=== PATIENT | female | born 1950 | race Caucasian/White ===

== ENCOUNTER 2020-04-01 15:30 | Outpatient (RCR) | payer MEDICARE, BC, SELFPAY ==
--- NOTE | 2020-03-18 15:56 | PTOPEVAL ---
INITIAL PHYSICAL THERAPY EVALUATION and PLAN OF CARE Thank you for referring Carrie Sanon to [facility].? Carrie is scheduled to be seen for physical therapy? 2x/week for 4 weeks. Please review, sign, date and return this plan of care BRYAN. I agree with and certify that the following plan of care is medically necessary. Referring Physician Date Admitting Provider: Attending Provider: Aida Arguelles, ANP Referring Provider: *PT Outpatient Evaluation Start: 03/18/20 14:40 Freq: Status: Active Protocol: Document 03/18/20 14:40 ALBERTO (Rec: 03/18/20 15:53 ALBERTO [id number]) Therapy Assessment Status Assessment Status Assessment Status Evaluation Outpatient Past Medical History Past Medical History Source of Past Medical History Patient Neurological History Hx Cerebrovascular Accident (CVA) Yes: initial one 7-8 yrs ago, other episodes summer & Fall 2019,affected L side Cardiovascular History Hx Coronary Artery Bypass Graft Yes: x3, 2012 - graft from L leg Hx Hypercholesterolemia Yes Hx Hypertension Yes Respiratory History Hx Respiratory Disorders No Significant History Gastrointestinal History Hx Gastrointestinal Disorders No Significant History Genitourinary History Hx Kidney Stones Yes Musculoskeletal History Hx Arthritis Yes Endocrine History Hx Diabetes Yes Psychosocial History Hx Anxiety Yes Evaluation Information Problem Diagnosis Lower Extremity weakness and falls Onset fall this summer, couple episodes of further L UE weakness Subjective Information Saw Judy MARINO - noticed how Query Text:As Reported By Patient/ she was walking - testing out Family her leg strength - increased weakness present. After sleeping - able to get up and move around no problems. During COVID - activity level decreased - wasn't getting out as much as she use to. At home - if didn't move around much could reach out for furniture for some support. Fell getting out of the shower /bathtub - turned around and loss balance - couldn't get up - of no help. - has catch in L knee since this
--- NOTE | 2020-04-05 14:41 | PCPTNOTE ---
Patient called & cancelled scheduled appointment this date due to increased discomfort from arthritis.
--- NOTE | 2020-04-08 15:27 | PCPTNOTE ---
Patient called & cancelled scheduled appointment this date and her next appointment this week due to shingles. Her 04/10/20 appointment was her re-evaluation. Hopefully she will call to reschedule this appointment.
--- NOTE | 2020-04-24 13:48 | PCPTNOTE ---
PHYSICAL THERAPY DISCHARGE SUMMARY Admitting Provider: Attending Provider: Aida Arguelles, ANP Patient:Carrie Sanon Date of :1950 Carrie has not returned for any further treatments since 04/01/2020, therefore she will be discharged at this time. Patient?s initial visit was on 03/18/2020 14:30 and she had a total of 5 visits. She did call to cancel her last 3 appointments - 1 due to arthritic pain and the last 2 due to shingles. She has not called to reschedule her re-evaluation appointment which was originally scheduled for 04/10/2020. The goals have been partially met. Thank you for referring Carrie to [facility]. Please review, sign, date and return this discharge summary BRYAN. I have been updated about Carrie's current status and I agree with discharge from the above service at this time. Referring Physician Date
== END 2020-04-25 13:08 | disposition home or self-care (01) ==
LOC: ANHHIPT 15:30
PROVIDERS: PCP Internal Medicine; Visit Provider Physician Assistant Medical
DX: M62.81 Muscle weakness (generalized) (principal); Z91.81 History of falling
CPT/HCPCS: 97110; 97162

== ENCOUNTER 2023-03-11 01:46 | Day surgery (SDC) | payer MEDICARE, BC, SELFPAY ==
[2023-03-08 15:34] VITALS: BMI 31.4
--- NOTE | 2023-03-08 15:46 | PC.NURSE ---
Report to the Outpatient Waiting Room, entrance under the green pavilion located off [facility], at time 0830 on date 03/11/23. Planned Procedure Time: 1030. Time changes happen often and if your time is changed the preop area will call you the afternoon before. - You and your visitor will be asked to self-screen and do not enter if you have any COVID symptoms. - A mask is optional within the hospital at this time. Patients may have clear liquids (water, carbonated beverages, clear teas, apple juice) until 3 hours prior to surgery with a maximum of 20 ounces. - No food from midnight until time of surgery Take the following medications with a SIP of water the morning of surgery: AMLODIPINE, ATENOLOL, CLONAZEPAM, ESCITALOPRAM, KEPPRA DO NOT STOP ANY OF YOUR OTHER PRESCRIPTION MEDICATIONS PRIOR TO SURGERY ?EXCEPT THE FOLLOWING Medications to discontinue per physician: ASPIRIN Date to take last dose: PT STATES WAS SWITCHED FROM 325MG TO 81MG TO CONTINUE FOR SURGERY Please no make-up, nail surinamese, hairspray, perfume, deodorant, or body powder the day of surgery. No jewelry (including any body piercings) or valuables the day of surgery, leave them at home. Please take a shower or bath the night before, or the morning of, surgery with an antibacterial soap. Wear comfortable, loose fitting clothing. - Jewelry must be removed prior to entering the operating room. Rings and piercings that are not removed may be cut off. - The hospital will not accept responsibility for valuables. - Please leave all valuables, including medications, at home the day of surgery. If you are going home after surgery, a licensed trolley coach driver must drive you home. - NO public transportation without another adult if you receive anesthesia. - We recommend that an adult stay with you for 24 hours following discharge. - We also recommend that you do not drive, make important decision, drink alcoholic beverages, or take any drugs that were not prescribed by your health care provider for at least 24 hours after your discharge time. Follow any additional instructions given to you from your surgeon. If you or anyone in your household have experienced Covid symptoms in the past week, please notify your surgeon or the nurse liaison at the phone number below for possible testing. Telephone instructions given to PT & and asked if any additional questions and then verbalized understanding. Patient advised to call surgeon office or pre surgery nurse liaison [phone] if any additional questions.
--- NOTE | 2023-03-10 07:22 | PM.HPGS ---
History of Present Illness History of Present Illness Consent: Risks, benefits, and alternatives have been discussed and questions answered. Patient agrees to proceed with procedure. Chief complaint: left ureteral stones Narrative: Carrie Sanon is a 73 year old female who was seen in the emergency department at [facility] in [place] a couple months ago with left flank pain and nausea. Imaging demonstrated a 2.5 cm left renal pelvic calculus. Because of the stone size and her body habitus she was not felt to be a candidate for ESWL and the risk with left percutaneous nephrostomy with percutaneous nephrolithotomy was felt to be significant. Instead, she has off did for staged left ureteroscopy with laser lithotripsy and stone extraction. She is aware of the risks including, but not limited to, need for additional procedures, ureteral injury, need to replace the stent, hematuria. Review of Systems Review of Systems: All systems reviewed & are unremarkable except as noted in HPI and below PMFSH Past Medical History Medical History (Updated 03/10/23 @ 07:24 by Sam Daniel MD) Anxiety CAD (coronary artery disease) Diabetes Dyslipidemia HTN (hypertension) Hx of nephrolithotomy with removal of calculi MDD (major depressive disorder) ALANIS (obstructive sleep apnea) TIA (transient ischemic attack) Vitamin D deficiency Surgical History Surgical History H/O heart bypass surgery Family History Family History Father Cancer Mother Cancer Hypertension Heart disease Depression Cerebrovascular accident Social History Social History Smoking status: Never smoker Alcohol intake: never Substance use: never Substance use type: does not use Lack of Transportation: No Lack of Food: Never True Current Housing: I Have Housing Concerned About Future Housing: No Difficulty Paying Gas/Electric Bills: No Difficulty Paying for Meds: No Currently Unemployed: No Education: Trade/Vocational Certificate Living arrangements: with family Occupation/Education: retired Gender identity (if verbalized by the patient): Female Spiritual care concerns: No Meds Home Medications and Allergies Home Medications Medication Instructions Recorded Confirmed Type amlodipine 5 mg tablet 5 mg PO DAILY 07/15/22 03/08/23 History aspirin 325 mg tablet 325 mg PO DAILY 07/15/22 03/08/23 History atenolol 50 mg tablet 50 mg PO DAILY 07/15/22 03/08/23 History atorvastatin 40 mg tablet 40 mg PO DAILY 07/15/22 03/08/23 History clonazepam 0.5 mg tablet 0.5 mg PO .COMPLEX 07/15/22 03/08/23 History escitalopram oxalate 20 mg tablet 20 mg PO DAILY 07/15/22 03/08/23 History nitroglycerin 0.4 mg sublingual 0.4 mg sublingual Q5M PRN Chest 07/15/22 03/08/23 History tablet Pain valsartan 320 1 tablet PO DAILY 07/15/22 03/08/23 History mg-hydrochlorothiazide 25 mg tablet cholecalciferol (vitamin D3) 25 25 mcg PO DAILY 10/26/22 03/08/23 History mcg (1,000 unit) capsule cyanocobalamin (vitamin B-12) 1,000 mcg PO DAILY 10/26/22 03/08/23 History 1,000 mcg tablet aspirin 81 mg chewable tablet 81 mg PO DAILY 03/08/23 03/08/23 History levetiracetam 250 mg tablet 250 mg PO BID 03/08/23 03/08/23 History metformin 500 mg tablet 1,000 mg PO BID 03/08/23 03/08/23 History Allergies Allergy/AdvReac Type Severity Reaction Status Date / Time codeine Allergy Unknown Dizziness Verified 03/08/23 15:30 empagliflozin AdvReac GI upset Verified 03/08/23 15:30 [From Jardiance] Exam Const: General: no acute distress Resp: Effort & Inspection: normal respiratory effort GI: Inspection: non-distended GI Palp: No abdominal tenderness and No Guarding due to palpation present (GI) Auscultation: normal bowel sounds Assessment and Plan Assessment a
[2023-03-11] VITALS (8 sets, daily range): BP systolic 121–155; BP diastolic 43–60; PULSE 57–66; RESP 14–18; TEMP 36.3–36.9; O2SAT 95–100
--- NOTE | ~2023-03-11 | XR_ITS ---
EXAMINATION: XR stent kub - surgery DATE: 03/11/2023 12:24 INDICATION: Left ureteral stones. TECHNIQUE: 18 fluoroscopic intraoperative views of the abdomen and pelvis were obtained. I was not pr esent. Less exposure time was 46 seconds. COMPARISON: Abdomen radiograph 05/03/2018 FINDINGS: Initial images demonstrate a stone in left renal pelvis. The final images demonstrate a lef t internal ureteral stent in expected position. IMPRESSION: 1. Stone in left renal pelvis. 2. Left internal ureteral stent in expected position. Reviewed, dictated and finalized at location A. COMPLIANCE
--- NOTE | 2023-03-11 06:25 | WPDHPUPDATE1 ---
History and Physical Update Update Date/Time: 03/11/23 06:25 History and Physical has been reviewed, including an updated exam of the patient. There are NO changes in the patient's condition. Risks, benefits, and alternatives have been discussed and questions answered. Patient agrees to proceed with procedure.
[2023-03-11] MEDS: LACTATED RINGERS 1,000 ML 30 ML IV CONT ×2 (09:30→12:25)
[2023-03-11 09:53] LABS: Anion Gap 9 mmol/L (8-16); Blood Urea Nitrogen 31 mg/dL (7-17); Carbon Dioxide 27 mmol/L (22-30); Chloride 102 mmol/L (98-107); Estimated CRCL calculation 32 ml/min; Estimated Glomerular Filt Rate 44; Glucose 111 mg/dL (65-110); Potassium 3.3 mmol/L (3.4-5.0); Sodium 138 mmol/L (137-145)
--- NOTE | 2023-03-11 10:29 | WPDANESEPPF ---
Anes - Initial Pre Proc Eval Procedure: Operation Date: 03/11/23 10:30 Proposed Procedures p Cystoscopy, Left Ureteroscopy, Possible Left Retrograde Pyelogram, Possible Left Stone Extraction, Possible Left Stent Placement, Possible Holmium Laser Procedure - Sam Daniel MD Date/Time: 03/11/23 10:29 Surgeon: Sam Daniel MD Pre Op Diagnosis: left ureteral stones Patient Data Age: 73 Gender: F Height: 1.52 m Weight: 72.4 kg Last Vital Signs Temp 36.9 C 03/11/23 09:24 Pulse 59 L 03/11/23 09:24 Resp 16 03/11/23 09:24 BP 137/60 03/11/23 09:24 Pulse Ox 100 03/11/23 09:24 O2 Del Method Room Air 03/11/23 09:24 Allergies Allergy/AdvReac Type Severity Reaction Status Date / Time codeine Allergy Unknown Dizziness Verified 03/11/23 09:31 empagliflozin AdvReac GI upset Verified 03/11/23 09:31 [From [facility]] Home Medications Medication Instructions Recorded Confirmed Type amlodipine 5 mg tablet 5 mg PO DAILY 07/15/22 03/11/23 History aspirin 325 mg tablet 325 mg PO DAILY 07/15/22 03/11/23 History atenolol 50 mg tablet 50 mg PO DAILY 07/15/22 03/11/23 History atorvastatin 40 mg tablet 40 mg PO DAILY 07/15/22 03/11/23 History clonazepam 0.5 mg tablet 0.5 mg PO .COMPLEX 07/15/22 03/11/23 History escitalopram oxalate 20 mg tablet 20 mg PO DAILY 07/15/22 03/11/23 History nitroglycerin 0.4 mg sublingual 0.4 mg sublingual Q5M PRN Chest 07/15/22 03/08/23 History tablet Pain valsartan 320 1 tablet PO DAILY 07/15/22 03/11/23 History mg-hydrochlorothiazide 25 mg tablet cholecalciferol (vitamin D3) 25 25 mcg PO DAILY 10/26/22 03/11/23 History mcg (1,000 unit) capsule cyanocobalamin (vitamin B-12) 1,000 mcg PO DAILY 10/26/22 03/11/23 History 1,000 mcg tablet aspirin 81 mg chewable tablet 81 mg PO DAILY 03/08/23 03/11/23 History levetiracetam 250 mg tablet 250 mg PO BID 03/08/23 03/11/23 History metformin 500 mg tablet 1,000 mg PO BID 03/08/23 03/11/23 History Laboratory Tests 03/11/23 08:45 Sodium 138 mmol/L (137-145) Potassium 3.3 L mmol/L (3.4-5.0) Chloride 102 mmol/L (98-107) Carbon Dioxide 27 mmol/L (22-30) Anion Gap 9 mmol/L (8-16) BUN 31 H mg/dL (7-17) Creatinine 1.20 H mg/dL (0.7-1.0) Estim Creat Clear Calc 32 ml/min Estimated GFR 44 L (59 - ) Glucose 111 H mg/dL (65-110) Calcium 9.0 mg/dL (8.4-10.2) Patient hx anesthesia problems: none Family hx anesthesia problems: none Results Review: All pre-operative results and documents have been reviewed as part of the pre-operative evaluation. [facility] Past Medical History Medical History Anxiety CAD (coronary artery disease) Diabetes Dyslipidemia HTN (hypertension) Hx of nephrolithotomy with removal of calculi MDD (major depressive disorder) ALANIS (obstructive sleep apnea) TIA (transient ischemic attack) Vitamin D deficiency Surgical History Surgical History H/O heart bypass surgery Family History Family History Father Cancer Mother Cancer Hypertension Heart disease Depression Cerebrovascular accident Social History Social History Smoking status: Never smoker Alcohol intake: never Substance use: never Substance use type: does not use Lack of Transportation: No Lack of Food: Never True Current Housing: I Have Housing Concerned About Future Housing: No Difficulty Paying Gas/Electric Bills: No Difficulty Paying for Meds: No Currently Unemployed: No Education: Trade/Vocational Certificate Living arrangements: with family Occupation/Education: retired Gender identity (if verbalized by the patient): Female Spiritual care concerns: No Anes - Eval Final PreProcedure
[2023-03-11] MEDS: ceFAZolin 2 GM/D5W 50 ML 2 GM/50 ML BAG IVPB (10:41)
[2023-03-11] MEDS: LIDOCAINE HCL 2% GEL UROJET 10 ML PKG MUCOUS MEM (11:13)
--- NOTE | 2023-03-11 12:32 | P.OP_ITS ---
Procedure Note - Detailed Date of Procedure 03/11/23 Pre-op Diagnosis Left renal stones Post-op Diagnosis Same Procedure Performed Cystoscopy, left ureteroscopy with laser lithotripsy of a very large left renal pelvic stone, left ureteral stent placement Surgeon Sam Daniel MD Anesthesia General Description of Procedure Patient is brought to the operative suite she was prepped and draped in routine sterile fashion while in dorsal lithotomy position after the uneventful induction of a general LMA anesthetic. Cystoscopy was undertaken with a 19 F rigid cystoscope. Bladder neck and urethra endoscopically normal. Bladder mucosa is normal without hyperemia. There was no intravesical foreign body or neoplasm. A 0.035 in glidewire was advanced into her left renal pelvis. Distal ureter was dilated with an 8 F 10 F dilator. The safety wire was placed ( same type of wire) and a 11 F/ 13 F ureteral access sheath was placed. Flexible ureteroscopy was undertaken with a 7.5 F digital ureteral scope. Her very large renal pelvic stone is identified. Using a 235 micron Ward laser fiber on a du sting mode my fractured the entire stone. This was an extensive procedure requiring 70 minutes of laser application. Throughout this I maintain high-flow under pressure through the ureteral scope. Appeared to be excellent fragmentation at the termination. A 6 F variable length stent was placed in scopes and wires removed. Drains Yes Packing Yes Pathology None sent
== END 2023-03-11 14:30 | disposition home or self-care (01) ==
PROVIDERS: PCP Physician Assistant Medical; Visit Provider Urology
PROC: (CPT 52352; principal; 2023-03-11 10:30)
DX: N20.0 Calculus of kidney (principal); I25.10 Atherosclerotic heart disease of native coronary artery without angina pectoris; I10 Essential (primary) hypertension; E11.9 Type 2 diabetes mellitus without complications; E78.5 Hyperlipidemia, unspecified; F32.9 Major depressive disorder, single episode, unspecified; F41.9 Anxiety disorder, unspecified; G47.33 Obstructive sleep apnea (adult) (pediatric); E55.9 Vitamin D deficiency, unspecified; Z86.73 Personal history of transient ischemic attack (TIA), and cerebral infarction without residual deficits; Z95.1 Presence of aortocoronary bypass graft; Z79.52 Long term (current) use of systemic steroids; Z79.84 Long term (current) use of oral hypoglycemic drugs
CPT/HCPCS: 52356; 36415; 80048; 93005; C1769; C1894; C2617; J0690; J1100; J2405; J2704; J3010; J7120

== ENCOUNTER 2023-03-24 08:15 | Outpatient (CLI) | payer MEDICARE, BC, SELFPAY ==
--- NOTE | ~2023-03-24 | XR_ITS ---
XR abdomen/kub 1V 03/24/2023 08:39 INDICATION: Left ureteral stone TECHNIQUE: KUB COMPARISON: 05/03/2018 FINDINGS: Bowel gas pattern is normal. There is a left internal ureteral stent. There are pelvic phle boliths. There are splenic arterial calcifications. There is no evidence of free air, mass, organomeg edward, ascites or obstruction. No abnormal calculi are seen. The bones appear intact. There is a left internal ureteral stent in expected position. Mild lumbar spondylosis. IMPRESSION: 1: No acute abdominal abnormality identified. Reviewed, dictated and finalized at location B. [employer]
== END 2023-03-24 08:16 | disposition home or self-care (01) ==
PROVIDERS: PCP Physician Assistant Medical; Visit Provider Urology
DX: N20.1 Calculus of ureter (principal)
CPT/HCPCS: 74018